=== PATIENT | male | born 1960 | race Caucasian/White ===

== ENCOUNTER 2024-01-20 15:18 | Day surgery (SDC) | payer BC, SELFPAY ==
[2024-01-20] VITALS (42 sets, daily range): BP systolic 131–196; BP diastolic 80–119; PULSE 59–78; RESP 14–16; TEMP 36.3–37.2; O2SAT 88–99; BMI 30.5
--- NOTE | 2024-01-20 16:36 | ED.ABDPAIN ---
HPI - Abdominal Pain General Date Seen: 01/20/24 Chief Complaint: Abdominal Pain Stated Complaint: Lower R abdominal pain Time Seen by Provider: 01/20/24 15:58 History of Present Illness HPI narrative: patient lifted up the kayak around 1000 to load in vehicle and noticed some pain in the lower abdomen and has continued but now is more in the RLQ with some tenderness . denies NVD. pain has been persistent and rated at 3/10 with standing and 8/10 if moving. last eaten at 0800 and drank 1300. Patient is the very nice gentleman who presents here with his . For evaluation of right lower quadrant pain this started approximately 10:00 a.m. this morning while he was loading a [employer] at the [employer]. Describes the pain as 3/10 5/10 when he sits. Initially was 8/10 when it occurred. He describes it as sharp. Better when he stands worse when he lies. Or bears down. Denies any bulges, masses, denies any nausea vomiting fevers chills or sweats and was feeling fine before this and did eat something this morning. Did not take any medications for this. Has a previous history of bilateral inguinal hernia repair. Denies any diarrhea, hematuria, darkening urine. Dysuria frequency, or any other real symptoms. MD elicited complaint: abdominal pain Pertinent past history: none Onset (ago): hour(s) Pain Consistency: constant Location: RLQ Severity: moderate Quality: stabbing Radiation: none Migration to: no migration Exacerbating factors: movement Relieving factors: movement Context: other Associated symptoms: denies other symptoms Related Data Home Medications ?Medication ?Instructions ?Recorded ?Confirmed No Known Home Medications 01/20/24 01/20/24 Allergies Allergy/AdvReac Type Severity Reaction Status Date / Time No Known Drug Allergies Allergy Verified 01/20/24 15:49 Review of Systems Status of ROS Reports: 10 or more systems reviewed and unremarkable except as noted in History and below Exam Narrative: Exam Narrative: Patient is speaking normally, no problem with slurring words, oriented x3. Head eyes ears nose and throat exam show equal pupils, no scleral icterus, extraocular muscles are normal, no facial droop, speech is normal, trachea normal and midline. Thyroid normal midline palpable not enlarged. Chest shows symmetrical rise bilaterally, normal auscultation with no wheezes, no increased work of breathing, no overt bruising or lesions seen, no tenderness is noted on auscultation. Heart sounds normal with no S3-S4 no murmurs clicks or gallops. Abdomen shows no obvious masses or hepatosplenomegaly, no organomegaly, bowel sounds are normal in all quadrants. There is tenderness noted in the right lower quadrant, but I cannot appreciate a bulge, despite multiple maneuvers to see if I can get this to come out. Testicles are both descended and normal. No CVA tenderness no lumbar tenderness, SLR is are negative. Hips have great range of motion bilaterally.. Upper and lower extremities show normal power, normal range of motion, pulses are normal, sensations normal, fine motor movements are normal, pelvis is stable to rocking. Cervical spine shows normal range of motion, and palpably not tender. Thoracic spine shows normal range of motion, and palpably not tender, lumbar spine shows no tenderness to palpation percussion and is otherwise normal range of motion. Skin shows no rashes, petechiae or eccymosis. Reflexes are +1/4 his knees and ankles. Const: Vital Signs, click to edit/add: Vital Signs - 24 hr 01/20/24 15:42 01/20/24 15:42 01/20/24 16:56 Temperature 99.0 F Pulse Rate 70 Pulse Rate [Right Pulse Oximeter] 78 Respiratory Rate 16 Blood Pressure 196/119 H 167/101 H Blood Pressure [Le ft Upper Arm] 196/119 H Pulse Oximetry 97 93 Oxygen Delivery Me thod Room Air 01/20/24 16:57 01/20/24 17:00 01/20/24 17:02 Temperature Pulse Rate 62 65 71 Pulse Rate [Right Pulse Oximeter] Respiratory Rate Blood Pressure 166/103 H Blood Pressure [Le ft Upper Arm] Pulse Oximetry 96 92 95 Oxygen Delivery Me thod 01/20/24 17:15 01/20/24 17:30 01/20/24 17:32 Temperature Pulse Rate 60 70 73 Pulse Rate [Right Pulse Oximeter] Respiratory Rate Blood Pressure 172/98 H Blood Pressure [Le ft Upper Arm] Pulse Oximetry 95 94 95 Oxygen Delivery Me thod 01/20/24 17:45 01/20/24 18:14 01/20/24 18:15 Temperature Pulse Rate 66 72 72 Pulse Rate [Right Pulse Oximeter] Respiratory Rate Blood Pressure 168/103 H 168/103 H Blood Pressure [Le ft Upper Arm] Pulse Oximetry 97 97 96 Oxygen Delivery Me thod 01/20/24 18:16 Temperature Pulse Rate 69 Pulse Rate [Right Pulse Oximeter] Respiratory Rate Blood Pressure Blood Pressure [Le ft Upper Arm] Pulse Oximetry 96 Oxygen Delivery Me thod Documenting provider has reviewed patient's vital signs: yes Course Course ED Course: This CT scan, the radiologist has yet to reviewed, it looks like in his lower right abdominal region there is a bulge, that is herniated through bowel into his external oblique. 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 She does not feel that I will be able to reduce this in the emergency room, and that he should go to the operating room I then showed the patient and his the CT images. And the plan Consultations Consultation #1: Dr. Johnson general surgery Time: 18:44 Vital Signs Vital signs: Initial Vital Signs Temperature 99.0 F 01/20/24 15:42 Temperature Source Temporal Artery Scan 01/20/24 15:42 Pulse Rate 78 01/20/24 15:42 Respiratory Rate 16 01/20/24 15:42 Blood Pressure 196/119 H 01/20/24 15:42 Blood Pressure Mean 144 H 01/20/24 15:42 Blood Pressure Position Sitting 01/20/24 15:42 Pulse Oximetry 97 01/20/24 15:42 Oxygen Delivery Method Room Air 01/20/24 15:42 Vital Signs Temperature 99.0 F 01/20/24 15:42 Pulse Rate 78 01/20/24 15:42 Respiratory Rate 16 01/20/24 15:42 Blood Pressure 196/119 H 01/20/24 15:42 Pulse Oximetry 97 01/20/24 15:42 Oxygen Delivery Method Room Air 01/20/24 15:42 Temperature 99.0 F 01/20/24 15:42 Pulse Rate 69 01/20/24 18:16 Respiratory Rate 16 01/20/24 15:42 Blood Pressure 168/103 H 01/20/24 18:15 Pulse Oximetry 96 01/20/24 18:16 Oxygen Delivery Method Room Air 01/20/24 15:42 Medications Administered Medications: Discontinued Medications Generic Name Dose Route Start Last Admin Trade Name Freq PRN Reason Stop Dose Admin Sodium Chloride 1,000 mls @ 1,000 mls/hr 01/20/24 16:30 01/20/24 17:50 0.9 % Sodium Chloride 1000 Ml IV 01/20/24 17:29 Infused .Q1H ART Infusion Sodium Chloride 1,000 mls @ 1,000 mls/hr 01/20/24 17:30 01/20/24 18:13 0.9 % Sodium Chloride 1000 Ml IV 01/20/24 18:29 1,000 mls/hr .Q1H ART Administration Ketorolac Tromethamine 30 mg 01/20/24 16:27 01/20/24 16:51 Ketorolac 30 Mg/Ml Inj IVP 01/20/24 16:28 30 mg ONCE ONE Administration MDM - Abdominal Pain MDM Narrative Medical decision making narrative: During this evaluation of this patient I considered multiple differential diagnosis is which included the life-threatening such as appendicitis, aortic aneurysm, mesenteric ischemia, bowel perforation, volvulus, and bowel obstruction. Other differential diagnosis is include but are not limited to cholecystitis, pancreatitis, hepatitis, gastritis, GERD, diverticulitis, peptic ulcer disease, pyelonephritis/UTI, renal colic/stone, testicular torsion as well as other acute scrotal processes, inflammatory bowel disease, as well as other etiologies Medical Records Attestation: I reviewed the patient's medical records. Lab Data Attestation: I reviewed the patient's lab results. Labs: Lab Results 01/20/24 01/20/24 Range/Units 16:42 17:37 WBC 7.59 (4.50-11.00) K/uL RBC 4.80 (4.30-5.90) m/uL Hgb 14.5 (13.5-17.5) gm/dL Hct 41.4 (37.0-53.0) % MCV 86 (80-100) fL MCH 30 (26-34) pg MCHC 35 (32-36) gm/dL RDW Coeff of Brynn 11.9 (11.5-15.5) % Plt Count 236 (140-440) K/uL Neut % (Auto) 73.2 H (42.0-72.0) % Lymph % (Auto) 19.1 L (20-44) % [place] % (Auto) 5.7 (0.0-11.0) % Eos % (Auto) 1.2 (0.0-7.0) % Baso % (Auto) 0.3 (0.0-3.0) % Neut # (Auto) 5.60 (1.7-7.0) K/uL Lymph # (Auto) 1.40 (0.90-2.90) K/uL [place] # (Auto) 0.40 (0.00-0.90) K/UL Eos # (Auto) 0.09 (0.00-0.50) K/uL Baso # (Auto) 0.02 (0.00-0.30) K/uL Abs Immat Gran (auto) 0.04 (0.00-0.30) K/uL Imm/Tot Granulo (auto) 0.5 % Sodium 139 (135-149) mmol/L Potassium 3.8 (3.6-5.1) mmol/L Chloride 107 (96-114) mmol/L Carbon Dioxide 28 (20-32) mmol/L Anion Gap 4 L (7-15) mEq/L BUN 21 (7-30) mg/dL Creatinine 0.8 (0.5-1.5) mg/dL Estimated Creat Clear 82.99 Estimated GFR 99 ml/min Glucose 99 (60-115) mg/dL Calcium 9.2 (8.4-10.6) mg/dL Total Bilirubin 0.9 (0.1-1.5) mg/dL Direct Bilirubin 0.4 (0.0-0.5) mg/dL AST 45 H (12-35) U/L ALT 65 H (4-50) U/L Alkaline Phosphatase 68 (40-150) U/L C-Reactive Protein < 0.5 L (0.5-1.0) mg/dL Total Protein 7.3 (6.0-8.3) g/dL Albumin 4.4 (3.3-5.0) g/dL Amylase 68 (18-89) U/L Lipase 36 (23-300) U/L Urine Color Yellow (Yellow) Urine Appearance Clear (Clear) Urine pH 5.5 (5.0-8.5) Ur Specific [place] 1.025 (1.000-1.030) Urine Protein Negative (Negative) Urine Glucose (UA) Negative (Negative) Urine Ketones Negative (Negative) Urine Blood Negative (Negative) Urine Nitrite Negative (Negative) Urine Bilirubin Negative (Negative) Urine Urobilinogen 0.2 (0.2-1.0) Ur Leukocyte Esterase Negative (Negative) Urine RBC 0-2 (0-2) Urine WBC 0-2 (0-5) Ur Squamous Epith Cells None (None-Few) Urine Bacteria None (None) Imaging Data CT scan - abdomen: Attestation: I have reviewed the pertinent imaging results. My impression: Hernia involving the external oblique, on the right lower quadrant there appears to be some bowel within it Discharge Plan Discharge Clinical Impression: Incarcerated hernia of abdominal cavity Patient Disposition: XFER to OR Prescriptions: No Action No Known Home Medications Follow Up/Referrals: Provider,Not a Local [Primary Care Provider] -
[2024-01-20] MEDS: 0.9 % SODIUM CHLORIDE 1000 ml 1,000 ML IV ×2 (16:50→18:13)
[2024-01-20 16:51] LABS: Basophils Absolute Auto 0.02 K/uL (0.00-0.30); Basophils Percent Auto 0.3 % (0.0-3.0); Eosinophils Absolute Auto 0.09 K/uL (0.00-0.50); Eosinophils Percent Auto 1.2 % (0.0-7.0); Hematocrit 41.4 % (37.0-53.0); Hemoglobin* 14.5 gm/dL (13.5-17.5); Immature Granulocytes Abs Auto 0.04 K/uL (0.00-0.30); Immature Granulocytes Pct Auto 0.5 %; Lymphocytes Percent Auto 19.1 % (20-44); Mean Corpuscular HGB Conc 35 gm/dL (32-36); Mean Corpuscular Hemoglobin 30 pg (26-34); Mean Corpuscular Volume 86 fL (80-100); Monocytes Percent Auto 5.7 % (0.0-11.0); Neutrophils Percent Auto 73.2 % (42.0-72.0); Platelet Count* 236 K/uL (140-440); RDW Coefficient of Variation % 11.9 % (11.5-15.5); White Blood Count* 7.59 K/uL (4.50-11.00)
[2024-01-20] MEDS: KETOROLAC 30 MG/ML inj IVP (16:51)
[2024-01-20 17:12] LABS: Slide Review Reflex No
[2024-01-20 17:17] LABS: Chloride* 107 mmol/L (96-114)
[2024-01-20 17:18] LABS: Albumin* 4.4 g/dL (3.3-5.0); Potassium* 3.8 mmol/L (3.6-5.1); Sodium* 139 mmol/L (135-149)
[2024-01-20 17:20] LABS: Creatinine* 0.8 mg/dL (0.5-1.5); Est. Creatinine Clearance* 82.99; Estimated Glomerular Filt Rate 99 ml/min
[2024-01-20 17:21] LABS: Alanine Aminotransferase* 65 U/L (4-50); Alkaline Phosphatase* 68 U/L (40-150); Anion Gap 4 mEq/L (7-15); Aspartate Amino Transferase* 45 U/L (12-35); Bilirubin Direct* 0.4 mg/dL (0.0-0.5); Bilirubin Total* 0.9 mg/dL (0.1-1.5); Blood Urea Nitrogen* 21 mg/dL (7-30); Calcium* 9.2 mg/dL (8.4-10.6); Carbon Dioxide* 28 mmol/L (20-32); Glucose* 99 mg/dL (60-115); Lipase* 36 U/L (23-300); Total Protein* 7.3 g/dL (6.0-8.3)
[2024-01-20 17:26] LABS: C Reactive Protein* < 0.5 mg/dL (0.5-1.0)
[2024-01-20 17:31] LABS: Amylase* 68 U/L (18-89)
--- NOTE | 2024-01-20 17:41 | CRLHL7_ITS ---
For Patients: As a result of the Century Cures Act, medical imaging exams and procedure reports are released immediately into your electronic medical record. You may view this report before your referring provider. If you have questions, please contact your health care provider. INDICATION: Right lower quadrant pain. CT ABDOMEN AND PELVIS WITH CONTRAST TECHNIQUE: Multidetector CT imaging was performed through the abdomen and pelvis following intravenous contrast administration using 110 mL Isovue 370. Coronal and sagittal reconstructions were generated. COMPARISON: None. FINDINGS: Lower chest: Mild bibasilar lung atelectasis. Liver: Diffuse fatty infiltration of the liver. Gallbladder and bile ducts: No gallbladder wall thickening or calcified gallstones. No biliary dilation identified. Pancreas: Unremarkable. Spleen: Mild splenomegaly measuring 14.9 centimeters. Adrenals: No nodules or masses. Kidneys, ureters, and urinary bladder: No renal masses or hydronephrosis. The urinary bladder is nondistended and largely obscured by artifact from a hip prosthesis. Gastrointestinal tract and abdominal wall: There appears to be surgical mesh in the inguinal regions bilaterally suggesting prior bilateral inguinal hernia repair. On the right, just above the mesh, there is a Spigelian hernia through which a short segment of small bowel protrudes anterolaterally into the abdominal wall between the aponeuroses of the internal and external oblique muscles. A small amount of fluid is also present within the hernia sac. The small bowel proximal to the hernia is mildly dilated while the small bowel distal to the hernia is relatively collapsed, consistent with partial obstruction due to the hernia. The appendix and colon are normal. Vascular structures: Normal caliber abdominal aorta with mild atherosclerotic changes at its bifurcation. Peritoneum: No free air, abscess, or significant free fluid. Lymph nodes: No pathologically enlarged nodes identified. Reproductive organs: Mild prostatomegaly. Bones: Mild spinal degenerative changes. Right hip prosthesis. IMPRESSION: 1. Partial small bowel obstruction due to right lower quadrant Spigelian hernia, as detailed above. 2. Nonacute additional findings as detailed above. NURY CRUZ MD [employer] Dictated by Elliot Cruz MD @ 01/20/2024 6:43:26 PM Please note that all CT scans at this facility use dose modulation, iterative reconstruction, and/or weight-based dosing when appropriate to reduce radiation dose to as low as reasonably achievable. Dictated by: Elliot Cruz MD @ 01/20/2024 18:44:18 (Electronically Signed)
[2024-01-20 17:51] LABS: Appearance Urine Clear (Clear); Bilirubin Urine Negative (Negative); Blood Urine Negative (Negative); Color Urine Yellow (Yellow); Glucose Urine Negative (Negative); Ketones Urine Negative (Negative); Leukocyte Esterase Urine Negative (Negative); Nitrite Urine Negative (Negative); Protein Urine Negative (Negative); Specific Gravity Urine 1.025 (1.000-1.030); Urobilinogen Urine 0.2 (0.2-1.0); pH Urine 5.5 (5.0-8.5)
[2024-01-20 18:00] LABS: RBC Urine 0-2 (0-2); WBC Urine 0-2 (0-5)
[2024-01-20] MEDS: LORazepam 2 MG/ML inj 0.5 MG IVP (19:27)
--- NOTE | 2024-01-20 20:03 | P.GSHP_ITS ---
History of Present Illness History of Present Illness Date Seen: 01/20/24 Chief complaint: Lower R abdominal pain Narrative: Nahum Dawson is a 63 year old male who presented to the emergency department this evening with right sided abdominal pain. He states that earlier around 10:00 a.m. he was lifting kayaks when he felt the abrupt onset of right-sided pain. The pain was so severe it made him bend over. Once this got a little bit better he continued and did go kayaking. He stated that the pain would get worse when he would go from sitting to a standing position however standing overall made the pain better. Because the pain persisted he came into the emergency department. He has not had any fevers. No nausea. He has not had anything like this previously though he has had prior inguinal hernia repairs he believes in 2007. He last ate this morning. No vomiting. [facility] Surgical History (Updated 01/20/24 @ 20:04 by Kylah Johnson MD) H/O bilateral inguinal hernia repair ?Z98.890 - Other specified postprocedural states (ICD-10) ?Z87.19 - Personal history of other diseases of the digestive system (ICD-10) Social History Narrative: He does not smoke. He drinks alcohol socially. He works in sales. Meds Home Medications and Allergies Home Medications ?Medication ?Instructions ?Recorded ?Confirmed ?Type No Known Home Medications 01/20/24 01/20/24 History Allergies Allergy/AdvReac Type Severity Reaction Status Date / Time No Known Drug Allergies Allergy Verified 01/20/24 15:49 Exam Narrative: Exam Narrative: General appearance: Alert, cooperative, and in no distress Eyes: PERRLA, eye lids clear, and sclera white HENT Head: Normocephalic Ears: External ears normal Pulmonary: Clear to auscultation bilaterally Cardiovascular Heart: Regular rate and rhythm Extremities: warm and well perfused Gastrointestinal Abdominal: Appears to have a right inguinal hernia scar. Otherwise no obvious abdominal scars. There is a Vague fullness his right lower abdomen which is mildly tender. No peritonitis. Skin: Normal skin color, texture, and turgor. Neurologic: No focal deficits Psychiatric: Alert, oriented, cooperative, normal affect. Const: Vital Signs, click to edit/add: Vital Signs - 24 hr 01/20/24 15:42 01/20/24 15:42 01/20/24 16:56 Temperature 99.0 F Pulse Rate 70 Pulse Rate [Right Pulse Oximeter] 78 Respiratory Rate 16 Blood Pressure 196/119 H 167/101 H Blood Pressure [Le ft Upper Arm] 196/119 H Pulse Oximetry 97 93 Oxygen Delivery Me thod Room Air 01/20/24 16:57 01/20/24 17:00 01/20/24 17:02 Temperature Pulse Rate 62 65 71 Pulse Rate [Right Pulse Oximeter] Respiratory Rate Blood Pressure 166/103 H Blood Pressure [Le ft Upper Arm] Pulse Oximetry 96 92 95 Oxygen Delivery Me thod 01/20/24 17:10 01/20/24 17:15 01/20/24 17:20 Temperature Pulse Rate 60 Pulse Rate [Right Pulse Oximeter] Respiratory Rate Blood Pressure Blood Pressure [Le ft Upper Arm] Pulse Oximetry 94 95 95 Oxygen Delivery Me thod 01/20/24 17:30 01/20/24 17:32 01/20/24 17:40 Temperature Pulse Rate 70 73 Pulse Rate [Right Pulse Oximeter] Respiratory Rate Blood Pressure 172/98 H Blood Pressure [Le ft Upper Arm] Pulse Oximetry 94 95 94 Oxygen Delivery Me thod 01/20/24 17:45 01/20/24 17:50 01/20/24 18:14 Temperature Pulse Rate 66 72 Pulse Rate [Right Pulse Oximeter] Respiratory Rate Blood Pressure 168/103 H Blood Pressure [Le ft Upper Arm] Pulse Oximetry 97 96 97 Oxygen Delivery Me thod 01/20/24 18:15 01/20/24 18:16 01/20/24 18:20 Temperature Pulse Rate 72 69 Pulse Rate [Right Pulse Oximeter] Respiratory Rate Blood Pressure 168/103 H Blood Pressure [Le ft Upper Arm] Pulse Oximetry 96 96 96 Oxygen Delivery Me thod 01/20/24 18:36 01/20/24 18:37 01/20/24 18:40 Temperature Pulse Rate 72 74 Pulse Rate [Right Pulse Oximeter] Respiratory Rate Blood Pressure 178/117 H Blood Pressure [Le ft Upper Arm] Pulse Oximetry 97 96 96 Oxygen Delivery Me thod 01/20/24 18:45 01/20/24 18:50 01/20/24 19:00 Temperature Pulse Rate 67 67 Pulse Rate [Right Pulse Oximeter] Respiratory Rate Blood Pressure Blood Pressure [Le ft Upper Arm] Pulse Oximetry 96 96 95 Oxygen Delivery Me thod 01/20/24 19:02 01/20/24 19:10 01/20/24 19:15 Temperature Pulse Rate 76 71 Pulse Rate [Right Pulse Oximeter] Respiratory Rate Blood Pressure 177/106 H Blood Pressure [Le ft Upper Arm] Pulse Oximetry 95 95 96 Oxygen Delivery Me thod 01/20/24 19:20 01/20/24 19:30 01/20/24 19:32 Temperature Pulse Rate 68 68 Pulse Rate [Right Pulse Oximeter] Respiratory Rate Blood Pressure 175/107 H Blood Pressure [Le ft Upper Arm] Pulse Oximetry 95 94 95 Oxygen Delivery Me thod 01/20/24 19:40 01/20/24 19:50 Temperature Pulse Rate Pulse Rate [Right Pulse Oximeter] Respiratory Rate Blood Pressure Blood Pressure [Le ft Upper Arm] Pulse Oximetry 94 94 Oxygen Delivery Me thod Results Results Labs: White blood cell count is normal though he does have a slight left shift. AST and ALT are slightly elevated. Abdomen CT scan report/results: report reviewed and image reviewed Additional studies: CT ABDOMEN AND PELVIS WITH CONTRAST TECHNIQUE: Multidetector CT imaging was performed through the abdomen and pelvis following intravenous contrast administration using 110 mL Isovue 370. Coronal and sagittal reconstructions were generated. COMPARISON: None. FINDINGS: Lower chest: Mild bibasilar lung atelectasis. Liver: Diffuse fatty infiltration of the liver. Gallbladder and bile ducts: No gallbladder wall thickening or calcified gallstones. No biliary dilation identified. Pancreas: Unremarkable. Spleen: Mild splenomegaly measuring 14.9 centimeters. Adrenals: No nodules or masses. Kidneys, ureters, and urinary bladder: No renal masses or hydronephrosis. The urinary bladder is nondistended and largely obscured by artifact from a hip prosthesis. Gastrointestinal tract and abdominal wall: There appears to be surgical mesh in the inguinal regions bilaterally suggesting prior bilateral inguinal hernia repair. On the right, just above the mesh, there is a Spigelian hernia through which a short segment of small bowel protrudes anterolaterally into the abdominal wall between the aponeuroses of the internal and external oblique muscles. A small amount of fluid is also present within the hernia sac. The small bowel proximal to the hernia is mildly dilated while the small bowel distal to the hernia is relatively collapsed, consistent with partial obstruction due to the hernia. The appendix and colon are normal. Vascular structures: Normal caliber abdominal aorta with mild atherosclerotic changes at its bifurcation. Peritoneum: No free air, abscess, or significant free fluid. Lymph nodes: No pathologically enlarged nodes identified. Reproductive organs: Mild prostatomegaly. Bones: Mild spinal degenerative changes. Right hip prosthesis. IMPRESSION: 1. Partial small bowel obstruction due to right lower quadrant Spigelian hernia, as detailed above. 2. Nonacute additional findings as detailed above. Progress Note:A&P Assessment and plan (1) Incarcerated hernia of abdominal cavity: Status: Acute Plan The patient is a 63-year-old male with an incarcerated spigelian hernia on the right. We discussed hernias. Since his hernia is incarcerated and somewhat difficult to palpate, I did recommend repair rather than attempts at reduction. We will start with a laparoscopic approach. He understands that if there is bowel compromise then this may necessitate bowel resection. Hernia may be repaired with permanent mesh if there is no concern for bowel ischemia. Otherwise bioprosthetic and or primary repair would be pursued given risk of infection. He understands that primary suture repair does have a higher risk of recurrence, however again in the setting of bowel ischemia, I would not place permanent mesh. We will start laparoscopically. He does understand there is a chance we may need to convert to open to potentially resect any bowel and/or possibly repair the hernia. We discussed risks of surgery including bleeding, infection, hernia recurrence, as well as recovery. He will stay in the hospital at least overnight. If bowel does need to be resected then he will need to stay in the hospital for a few days postoperatively until he has return of bowel function. He expressed good understanding and agreed to proceed. We will plan on surgery emergently.
[2024-01-20] MEDS: LACTATED RINGERS 1000 ML 1,000 ML 35 ML IV ×2 (20:04→20:05)
[2024-01-20] MEDS: PIPERACILLIN/TAZOBACTAM 3.375 GM INJ IVPB (20:20)
[2024-01-20] MEDS: BUPIVACAINE 0.25% 30 ML INJECTION (20:46)
[2024-01-20] MEDS: LACTATED RINGERS 1000 ML 1,000 ML 50 ML IV (21:42)
--- NOTE | 2024-01-20 22:14 | P.GSOP_ITS ---
Operative Note Date of procedure: 01/20/24 Pre-op diagnosis: Incarcerated right spigelian hernia Post-op diagnosis: Same Type of Procedure: Laparoscopic reduction and repair of incarcerated 1.5 cm right spigelian hernia Indications: The patient is a 63-year-old male who presented to the emergency room with right-sided pain which began earlier today. CT scan was obtained and this showed a spigelian hernia on the right which contained incarcerated bowel. I recommended laparoscopic exploration, reduction and hernia repair and the patien t agreed to proceed Procedure Description: After discussing the risks and benefits of the procedure, the patient signed informed consent.? The patient was brought to the operating room and placed on the operating table in supine position.? Care was taken to pad the patient's pressure points.?? The patient was then intubated by Anesthesia. The operative site was prepped and draped in the usual standard fashion. A time-out was then completed. Entrance to the abdomen was gained via Visiport technique in the left upper quadrant. The layers of the abdominal wall were visualized. The abdomen was entered and insufflated. This was surveyed for signs of injury. There were none. I placed a port in the left mid abdomen. This was a 5 mm port and was placed under direct vision. I placed an additional 5 mm port in the right mid to upper abdomen. In the right lower quadrant there was fat abutting the abdominal wall. The patient was placed into slight Trendelenburg position with the right side up. This was gently probed with a grasper and found to contain a loop of bowel. Without grabbing the bowel, but well gently providing traction from within the abdomen and pushing on the abdominal wall, I was able to get the hernia reduced. A knuckle of small bowel had been incarcerated within the hernia. This was hemorrhagic, however there was no ischemia noted. This was left to rest while the hernia was addressed. The hernia was examined. This measured approximately 1.5 cm. The hernia sac was reduced. This contained fluid and fibrinous material. A LigaSure was used to incise the hernia sac and create a plane in the preperitoneal space. This was done circumferentially around the hernia. Once this was done, the right upper quadrant port site was upsized to an 11 mm port. The hernia fascia was closed with V lock suture in a running fashion. This came together easily. A because of the hemorrhagic bowel and fluid within the hernia sac, I elected to use Phasix mesh to reinforce the closure. A piece of Phasix ST mesh was obtained. This was trimmed to size, measuring 6 cm circumferentially. Two 2-0 PDS sutures were placed on either end of the mesh. This was then placed in the abdomen. A Nael-Ese device was used to grasp the PDS suture and pulled them through stab incisions on either side of the hernia. The hernia mesh was then pulled up, centering this over the hernia itself. V lock suture was then used to further secure the mesh to the fascia and tack the hernia sac and peritoneum over the top of the fascia. Of note the peritoneum came to cover all but the top most sliver of mesh. Once this was done I re-examined the small bowel that had been incarcerated. T his still appeared red and hemorrhagic, however it was improved. There were no purple areas to suggest ischemia. Therefore, the bowel was left in place. The 11 mm port site was closed with 0 Vicryl using a Nael-Ese device. The abdomen was then desufflated. The ports were removed. The port sites were closed with Monocryl subcuticular suture. The stab incisions from the trans fascial sutures were closed with glue. Steri-Strips were then applied to the port sites. The patient was then woken and transported to the recovery area in stable condition. ? The patient tolerated the procedure well. Findings: Right spigelian hernia measuring 1.5 cm, with incarcerated small bowel. Small bowel appearing hemorrhagic, however not ischemic Anesthesia: GETA Surgeon: Kylah Johnson MD Estimated blood loss (mL): 5 Condition: stable Disposition: PACU
--- NOTE | 2024-01-20 22:28 | W.ANESCHARGE ---
Anesthesia Charges Start Date/Time Anesthesia Start Date: 01/20/24 Anesthesia Start Time: 20:04 Stop Date/Time Anesthesia Stop Date: 01/20/24 Anesthesia Stop Time: 22:02 Summary Emergency: [facility] [employer]
[2024-01-21] VITALS (8 sets, daily range): BP systolic 109–140; BP diastolic 69–90; PULSE 59–87; RESP 16–18; TEMP 36.6–37; O2SAT 88–95
[2024-01-21] MEDS: LACTATED RINGERS 1000 ML 1,000 ML 125 ML IV (03:14)
[2024-01-21 06:31] LABS: Basophils Absolute Auto 0.01 K/uL (0.00-0.30); Basophils Percent Auto 0.1 % (0.0-3.0); Hematocrit 40.4 % (37.0-53.0); Hemoglobin* 13.9 gm/dL (13.5-17.5); Immature Granulocytes Abs Auto 0.13 K/uL (0.00-0.30); Immature Granulocytes Pct Auto 1.6 %; Lymphocytes Percent Auto 9.1 % (20-44); Mean Corpuscular HGB Conc 34 gm/dL (32-36); Mean Corpuscular Hemoglobin 30 pg (26-34); Mean Corpuscular Volume 87 fL (80-100); Monocytes Percent Auto 1.9 % (0.0-11.0); Neutrophils Percent Auto 87.3 % (42.0-72.0); Platelet Count* 241 K/uL (140-440); Red Blood Count 4.64 m/uL (4.30-5.90); White Blood Count* 7.89 K/uL (4.50-11.00)
[2024-01-21 06:42] LABS: Slide Review Reflex No
[2024-01-21 06:51] LABS: Chloride* 106 mmol/L (96-114)
[2024-01-21 06:52] LABS: Albumin* 3.6 g/dL (3.3-5.0); Potassium* 4.3 mmol/L (3.6-5.1); Sodium* 136 mmol/L (135-149)
[2024-01-21 06:55] LABS: Alanine Aminotransferase* 54 U/L (4-50); Alkaline Phosphatase* 59 U/L (40-150); Anion Gap 2 mEq/L (7-15); Aspartate Amino Transferase* 38 U/L (12-35); Bilirubin Direct* 0.3 mg/dL (0.0-0.5); Bilirubin Total* 0.9 mg/dL (0.1-1.5); Blood Urea Nitrogen* 18 mg/dL (7-30); Calcium* 8.6 mg/dL (8.4-10.6); Carbon Dioxide* 28 mmol/L (20-32); Creatinine* 0.9 mg/dL (0.5-1.5); Est. Creatinine Clearance* 82.99; Estimated Glomerular Filt Rate 96 ml/min; Glucose* 136 mg/dL (60-115); Total Protein* 6.3 g/dL (6.0-8.3)
--- NOTE | 2024-01-21 07:02 | PC.NURSE ---
pleasant and cooperative. Placed pt on 1L O2 when asleep due to desating as low as 71% on RA, no Hx THIERRY. Lap sites CDI. No c/o pain.
--- NOTE | 2024-01-21 08:43 | PM.DS1 ---
DS: Providers Provider Date Seen: 01/21/24 Primary care physician: Not a Local Provider Attending Physician on discharge: Kylah Johnson MD DS: Diagnosis Discharge Diagnosis (1) Incarcerated hernia of abdominal cavity: Status: Acute DS: Summary Hospital Course Hospital Course: Patient presented to emergency room with abdominal pain. He was found to have an incarcerated right spigelian hernia. Patient underwent laparoscopic reduction of spigelian hernia and repair with mesh. He was admitted for observation overnight. Patient is doing well postoperatively. He denies abdominal pain. Denies nausea vomiting. He has not passed gas. Patient is advanced to clear liquid diet. He was instructed to advance at home slowly. Time Spent with Patient Time attestation: Total time spent providing and/or coordinating discharge services: Exam Narrative: Exam Narrative: Abdomen is soft, not distended, not tender to palpation, laparoscopic incisions are covered with Steri-Strips. Const: Vital Signs, click to edit/add: Vital Signs - 24 hr 01/20/24 15:42 01/20/24 15:42 01/20/24 16:56 Temperature 99.0 F Pulse Rate 70 Pulse Rate [Right Pulse Oximeter] 78 Respiratory Rate 16 Blood Pressure 196/119 H 167/101 H Blood Pressure [Le ft Upper Arm] 196/119 H Pulse Oximetry 97 93 Oxygen Delivery Me thod Room Air Oxygen Flow Rate Fraction of Inspir ed Oxygen 01/20/24 16:57 01/20/24 17:00 01/20/24 17:02 Temperature Pulse Rate 62 65 71 Pulse Rate [Right Pulse Oximeter] Respiratory Rate Blood Pressure 166/103 H Blood Pressure [Le ft Upper Arm] Pulse Oximetry 96 92 95 Oxygen Delivery Me thod Oxygen Flow Rate Fraction of Inspir ed Oxygen 01/20/24 17:10 01/20/24 17:15 01/20/24 17:20 Temperature Pulse Rate 60 Pulse Rate [Right Pulse Oximeter] Respiratory Rate Blood Pressure Blood Pressure [Le ft Upper Arm] Pulse Oximetry 94 95 95 Oxygen Delivery Me thod Oxygen Flow Rate Fraction of Inspir ed Oxygen 01/20/24 17:30 01/20/24 17:32 01/20/24 17:40 Temperature Pulse Rate 70 73 Pulse Rate [Right Pulse Oximeter] Respiratory Rate Blood Pressure 172/98 H Blood Pressure [Le ft Upper Arm] Pulse Oximetry 94 95 94 Oxygen Delivery Me thod Oxygen Flow Rate Fraction of Inspir ed Oxygen 01/20/24 17:45 01/20/24 17:50 01/20/24 18:14 Temperature Pulse Rate 66 72 Pulse Rate [Right Pulse Oximeter] Respiratory Rate Blood Pressure 168/103 H Blood Pressure [Le ft Upper Arm] Pulse Oximetry 97 96 97 Oxygen Delivery Me thod Oxygen Flow Rate Fraction of Inspir ed Oxygen 01/20/24 18:15 01/20/24 18:16 01/20/24 18:20 Temperature Pulse Rate 72 69 Pulse Rate [Right Pulse Oximeter] Respiratory Rate Blood Pressure 168/103 H Blood Pressure [Le ft Upper Arm] Pulse Oximetry 96 96 96 Oxygen Delivery Me thod Oxygen Flow Rate Fraction of Inspir ed Oxygen 01/20/24 18:36 01/20/24 18:37 01/20/24 18:40 Temperature Pulse Rate 72 74 Pulse Rate [Right Pulse Oximeter] Respiratory Rate Blood Pressure 178/117 H Blood Pressure [Le ft Upper Arm] Pulse Oximetry 97 96 96 Oxygen Delivery Me thod Oxygen Flow Rate Fraction of Inspir ed Oxygen 01/20/24 18:45 01/20/24 18:50 01/20/24 19:00 Temperature Pulse Rate 67 67 Pulse Rate [Right Pulse Oximeter] Respiratory Rate Blood Pressure Blood Pressure [Le ft Upper Arm] Pulse Oximetry 96 96 95 Oxygen Delivery Me thod Oxygen Flow Rate Fraction of Inspir ed Oxygen 01/20/24 19:02 01/20/24 19:10 01/20/24 19:15 Temperature Pulse Rate 76 71 Pulse Rate [Right Pulse Oximeter] Respiratory Rate Blood Pressure 177/106 H Blood Pressure [Le ft Upper Arm] Pulse Oximetry 95 95 96 Oxygen Delivery Me thod Oxygen Flow Rate Fraction of Inspir ed Oxygen 01/20/24 19:20 01/20/24 19:30 01/20/24 19:32 Temperature Pulse Rate 68 68 Pulse Rate [Right Pulse Oximeter] Respiratory Rate Blood Pressure 175/107 H Blood Pressure [Le ft Upper Arm] Pulse Oximetry 95 94 95 Oxygen Delivery Me thod Oxygen Flow Rate Fraction of Inspir ed Oxygen 01/20/24 19:40 01/20/24 19:50 01/20/24 21:57 Temperature 97.6 F Pulse Rate 68 Pulse Rate [Right Pulse Oximeter] Respiratory Rate 14 Blood Pressure 149/91 H Blood Pressure [Le ft Upper Arm] Pulse Oximetry 94 94 94 Oxygen Delivery Me thod Nasal Cannula Oxygen Flow Rate 6 Fraction of Inspir ed Oxygen 100 01/20/24 22:00 01/20/24 22:05 01/20/24 22:10 Temperature Pulse Rate 68 66 65 Pulse Rate [Right Pulse Oximeter] Respiratory Rate 16 16 16 Blood Pressure 141/90 H 147/80 H 151/87 H Blood Pressure [Le ft Upper Arm] Pulse Oximetry 99 99 99 Oxygen Delivery Me thod Nasal Cannula Nasal Cannula Nasal Cannula Oxygen Flow Rate 6 6 6 Fraction of Inspir ed Oxygen 100 100 100 01/20/24 22:15 01/20/24 22:20 01/20/24 22:26 Temperature 97.7 F Pulse Rate 64 61 64 Pulse Rate [Right Pulse Oximeter] Respiratory Rate 16 16 16 Blood Pressure 144/94 H 152/91 H 145/88 H Blood Pressure [Le ft Upper Arm] Pulse Oximetry 96 96 96 Oxygen Delivery Me thod Room Air Room Air Room Air Oxygen Flow Rate Fraction of Inspir ed Oxygen 01/20/24 22:35 01/20/24 22:45 01/20/24 23:00 Temperature 97.4 F L 97.4 F L Pulse Rate 61 61 Pulse Rate [Right Pulse Oximeter] Respiratory Rate 14 14 Blood Pressure 147/86 H 142/88 H Blood Pressure [Le ft Upper Arm] Pulse Oximetry 94 91 91 Oxygen Delivery Me thod Room Air Room Air Oxygen Flow Rate Fraction of Inspir ed Oxygen 01/20/24 23:00 01/20/24 23:30 01/21/24 00:00 Temperature 97.8 F Pulse Rate 62 59 L 72 Pulse Rate [Right Pulse Oximeter] Respiratory Rate 16 16 16 Blood Pressure 142/84 H 131/80 136/86 Blood Pressure [Le ft Upper Arm] Pulse Oximetry 88 95 94 Oxygen Delivery Me thod Room Air Room Air Room Air Oxygen Flow Rate Fraction of Inspir ed Oxygen 01/21/24 00:30 01/21/24 01:00 01/21/24 02:00 Temperature 97.9 F Pulse Rate 68 59 L 60 Pulse Rate [Right Pulse Oximeter] Respiratory Rate 16 16 16 Blood Pressure 131/85 120/81 118/81 Blood Pressure [Le ft Upper Arm] Pulse Oximetry 88 93 93 Oxygen Delivery Me thod Room Air Nasal Cannula Nasal Cannula Oxygen Flow Rate 1 1 Fraction of Inspir ed Oxygen 01/21/24 03:00 01/21/24 04:00 Temperature 98.6 F Pulse Rate 70 69 Pulse Rate [Right Pulse Oximeter] Respiratory Rate 16 16 Blood Pressure 109/69 112/72 Blood Pressure [Le ft Upper Arm] Pulse Oximetry 93 88 Oxygen Delivery Me thod Nasal Cannula Nasal Cannula Oxygen Flow Rate 1 1 Fraction of Inspir ed Oxygen DS: Data Data Completed and Pending Labs on day of discharge: Labs from last 24 hours 01/21/24 01/20/24 01/20/24 06:00 17:37 16:42 WBC 7.89 7.59 RBC 4.64 4.80 Hgb 13.9 14.5 Hct 40.4 41.4 MCV 87 86 MCH 30 30 MCHC 34 35 RDW Coeff of Brynn 12.0 11.9 Plt Count 241 236 Neut % (Auto) 87.3 H 73.2 H Lymph % (Auto) 9.1 L 19.1 L [place] % (Auto) 1.9 5.7 Eos % (Auto) 0.0 1.2 Baso % (Auto) 0.1 0.3 Neut # (Auto) 6.90 5.60 Lymph # (Auto) 0.70 L 1.40 [place] # (Auto) 0.10 0.40 Eos # (Auto) 0.00 0.09 Baso # (Auto) 0.01 0.02 Abs Immat Gran (auto) 0.13 0.04 Imm/Tot Granulo (auto) 1.6 0.5 Sodium 136 139 Potassium 4.3 3.8 Chloride 106 107 Carbon Dioxide 28 28 Anion Gap 2 L 4 L BUN 18 21 Creatinine 0.9 0.8 Estimated Creat Clear 82.99 82.99 Estimated GFR 96 99 Glucose 136 H 99 Calcium 8.6 9.2 Total Bilirubin 0.9 0.9 Direct Bilirubin 0.3 0.4 AST 38 H 45 H ALT 54 H 65 H Alkaline Phosphatase 59 68 C-Reactive Protein < 0.5 L Total Protein 6.3 7.3 Albumin 3.6 4.4 Amylase 68 Lipase 36 Urine Color Yellow Urine Appearance Clear Urine pH 5.5 Ur Specific [place] 1.025 Urine Protein Negative Urine Glucose (UA) Negative Urine Ketones Negative Urine Blood Negative Urine Nitrite Negative Urine Bilirubin Negative Urine Urobilinogen 0.2 Ur Leukocyte Esterase Negative Urine RBC 0-2 Urine WBC 0-2 Ur Squamous Epith Cells None Urine Bacteria None Discharge Plan Discharge Disposition: Home w/ Parent or Adult Discharging Surgeon: Kylah Johnson Follow-Up Appointment: 2 weeks [facility] or [place] Prescriptions: New hydrocodone-acetaminophen 5-325 mg Tablet 1 - 2 tab PO Q6H PRN (Reason: Pain) Qty: 15 0RF Activity Level: No strenuous activity Activity Detail: No lifting more than 20 lb for 4 weeks Discharge Diet: Regular Patient Instructions: Laparoscopic Herniorrhaphy (DC), General Anesthesia (DC) Additional Instructions: Wound care: Your sutures are under the skin and will dissolve over time. Leave steri strips (white bandages) over incisions until they fall off (or remove after 7 days). Leave glue over right lower abdominal incisions in place until it falls off. OK to shower tomorrow but avoid bathing, soaking or swimming for 2 weeks. Pat the incisions dry. No need to wash or scrub the area. Apply ice to the area as needed for swelling. It is also OK to use a heating pad if this provides more comfort to you. Pain control: You were prescribed a pain medication. This medication contains acetaminophen (Tylenol). If you are taking your prescribed pain pills 4 times daily, do not take additional acetaminophen. As your pain improves, you can try taking acetaminophen instead of the prescribed pain pill. It is ok to take Ibuprofen or Naproxen (per directions on packaging). This medication helps with inflammation and swelling. Take an [id number] stool softener while you are taking prescribed pain medications to help alleviate constipation. I recommend Senna and/or Colace. Take as directed on package. If you have not had a bowel movement in 3 days, try taking Miralax as directed on the package. All of these are available over the counter. Follow-up Follow up with Dr. Johnson in 2-3 weeks Please call if you are experiencing severe pain, nausea, vomiting, difficulty urinating, fever or have not had bowel movement in 4 days after surgery. Follow-up: Kylah Johnson MD [Staff Physician] - Discharge Orders: Discharge Order (Routine); Ordered 01/21/24 Ordered By: Jun Man
== END 2024-01-21 12:45 | disposition home or self-care (01) ==
LOC: ED 19:25 → OR 20:02 → MEDSURG 22:36
PROVIDERS: Emergency Provider Family Medicine; Visit Provider Surgery
PROC: (CPT 49650; principal; 2024-01-20 20:00)
DX: K43.6 Other and unspecified ventral hernia with obstruction, without gangrene (principal); R10.31 Right lower quadrant pain
CPT/HCPCS: 49592; 00830; 36415; 51798; 74177; 80048; 80076; 81001; 81003; 82150; 83690; 85025; 86140; 99140; 99284; 99285; C1781; J0330; J0665; J1100; J1885; J2060; J2250; J2405; J2543; J2704; J2710; J3010; J7030; J7120; Q9967